=== PATIENT | female | born 1995 | race African-American/Black ===

== ENCOUNTER → 2018-09-14 | Outpatient (CLI) | payer OTHER ==
[~2018-09-14] MED LIST: PYRI25TA2 PO; UNIS25TA5 PO
== END ==
LOC: M WUC 18:07
PROVIDERS: ATTEND Physician Assistant
DX: O26.811 Pregnancy related exhaustion and fatigue, first trimester (principal); R11.0 Nausea; Z3A.00 Weeks of gestation of pregnancy not specified

== ENCOUNTER 2018-09-18 21:11 | Emergency (ER) | payer OTHER ==
[~2018-09-18] VITALS: Ht 162.6 cm; Wt 52.6 kg
[2018-09-18 21:11] VITALS: BP 126/73
[2018-09-18 22:06] LABS: BASO # 0.1 10^3/uL (0.0-0.2); BASO % 0.5 % (0.0-1.0); EOS # 0.3 10^3/uL (0.0-0.50); EOS % 2.6 % (0.0-3.0); HEMATOCRIT 37.3 % (36.0-47.0); HEMOGLOBIN 12.8 g/dl (12.0-15.5); LYMPH # 2.3 10^3/uL (1.5-6.5); LYMPH % 22.5 % (24.0-44.0); MEAN CORPUSCULAR HEMOGLOBIN 31.4 pg (27.0-33.0); MEAN CORPUSCULAR HGB CONC 34.3 g/dl (32.0-36.5); MEAN CORPUSCULAR VOLUME 91.4 fl (80.0-96.0); MONO # 0.7 10^3/uL (0.0-0.8); MONO % 6.8 % (0.0-5.0); NEUTROPHILS # 6.9 10^3/uL (1.8-7.7); NEUTROPHILS % 67.4 % (36.0-66.0); PLATELET COUNT, AUTOMATED 184 10^3/uL (150-450); RED BLOOD COUNT 4.08 10^6/uL (4.00-5.40); WHITE BLOOD COUNT 10.2 10^3/uL (4.0-10.0)
[2018-09-18 22:29] LABS: ALBUMIN 4.1 GM/DL (3.2-5.2); ALT/SGPT 14 U/L (12-78); BILIRUBIN,DIRECT 0.2 MG/DL (0.0-0.2); BILIRUBIN,TOTAL 0.5 MG/DL (0.2-1.0); BLOOD UREA NITROGEN 3 MG/DL (7-18); CALCIUM LEVEL 9.3 MG/DL (8.5-10.1); CARBON DIOXIDE LEVEL 26 MEQ/L (21-32); CHLORIDE LEVEL 104 MEQ/L (98-107); CREATININE FOR GFR 0.55 MG/DL (0.55-1.30); GLOMERULAR FILTRATION RATE > 60.0 (>60); GLUCOSE, FASTING 91 MG/DL (70-100); LIPASE 79 U/L (73-393); POTASSIUM SERUM 4.2 MEQ/L (3.5-5.1); SODIUM LEVEL 136 MEQ/L (136-145); TOTAL PROTEIN 7.3 GM/DL (6.4-8.2)
[2018-09-18] MEDS ORDERED: ONDANSETRON 4 MG ORAL DISINTEGRATING TAB (Q0162 PER 1MG) PO ONE (23:00)
[2018-09-18] MEDS ORDERED: PYRI25TA2 PO (23:46)
[2018-09-18] MEDS ORDERED: UNIS25TA5 PO (23:46)
== END 2018-09-18 23:54 | disposition home or self-care (01) ==
LOC: M ED 21:11
DX: O26.891 Other specified pregnancy related conditions, first trimester (principal); O21.9 Vomiting of pregnancy, unspecified; Z3A.00 Weeks of gestation of pregnancy not specified
CPT/HCPCS: 80048; 80076; 81001; 83690; 84702; 85025; 87086; 99284; Q0162

== ENCOUNTER → 2018-12-20 | Outpatient (CLI) | payer OTHER ==
[2018-12-20 08:11] LABS: BASO # 0.1 10^3/uL (0.0-0.2); BASO % 0.5 % (0.0-1.0); EOS # 0.2 10^3/uL (0.0-0.5); EOS % 1.8 % (0.0-3.0); HEMATOCRIT 32.3 % (36.0-47.0); HEMOGLOBIN 10.8 g/dl (12.0-15.5); LYMPH # 2.2 10^3/uL (1.5-5.0); LYMPH % 18.1 % (24.0-44.0); MEAN CORPUSCULAR HGB CONC 33.4 g/dl (32.0-36.5); MEAN CORPUSCULAR VOLUME 95.8 fl (80.0-96.0); MONO # 0.8 10^3/uL (0.0-0.8); MONO % 6.8 % (0.0-5.0); NEUTROPHILS # 8.9 10^3/uL (1.5-8.5); NEUTROPHILS % 71.9 % (36.0-66.0); PLATELET COUNT, AUTOMATED 158 10^3/uL (150-450); RED BLOOD COUNT 3.37 10^6/uL (4.00-5.40); WHITE BLOOD COUNT 12.4 10^3/uL (4.0-10.0)
--- NOTE | 2018-12-20 09:00 | REP ---
Clinical: Anatomical evaluation. Comparison: None . Findings: Examination demonstrates a single live intrauterine in cephalic presentation. motion is identified by technologist. Placenta is noted posterior and grade zero without evidence for placenta previa or abruption. Amniotic fluid volume is normal. Cervix measures 3.4 cm in length and appears closed. No evidence for nuchal cord. Gestational age by LMP 20 weeks 1 day with TRI 05/08/2019 . Gestational age by current measurements 20 weeks 3 days with TRI 05/06/2019 . FHR equals 147 beats per minute. BPD 4.9 cm 20 weeks 5 days HC 17.9 cm 20 weeks 2 days AC 14.1 cm 19 weeks 4 days FL 3.4 cm 20 weeks 6 days HL 3.3 cm 21 weeks 0 days HC/AC ratio 1.27 Estimated weight 335 grams ( 49th percentile). Anatomical assessment demonstrates normal structures including cranium, choroid plexus, cavum, lungs, four-chamber heart/ventricular outflow tracts, diaphragm, stomach, cord insertion/three-vessel cord, kidneys/bladder, and extremities. Limited evaluation of the posterior fossa, facial features, and spine. Impression: Single live intrauterine in cephalic presentation demonstrating appropriate interval growth. Anatomical limitations as noted above may warrant followup. Electronically Signed by Art Woody MD 12/20/2018 08:52 A
[2018-12-20 11:26] LABS: CHLAMYDIA DNA AMPLIFICATION NEGATIVE (NEGATIVE); GC DNA AMPLIFICATION NEGATIVE (NEGATIVE)
[2018-12-21 10:26] LABS: HIV 1&2 SCREEN CENTAUR NEGATIVE (NEGATIVE); RUBELLA IgG QUALITATIVE IMMUNE (IMMUNE)
== END ==
LOC: M RAD 06:34
PROVIDERS: ATTEND Obstetrics & Gynecology
DX: Z34.82 Encounter for supervision of other normal pregnancy, second trimester (principal); Z36.89 Encounter for other specified antenatal screening; Z3A.20 20 weeks gestation of pregnancy

== ENCOUNTER 2019-09-28 20:34 | Emergency (ER) | payer OTHER ==
--- NOTE | 2019-11-07 14:46 | ECGEPIP ---
[facility] - ED Test Date: 2019-09-28 Pat Name: TEOFILO OLSON Department: Room: - Gender: Female Digital Advertising Analyst: : 1995 Requested By: EMERGENCY ROOM Order Number: [id number] Reading MD: Eladia Estes Measurements Intervals [place] Rate: 74 P: 66 MA: 156 QRS: 72 QRSD: 85 T: 53 QT: 359 QTc: 398 Interpretive Statements SINUS RHYTHM NORMAL ECG SEE SCANNED DOWNTIME RECORD
[2019-11-12 04:49] LABS: APPEARANCE, URINE CLEAR (CLEAR); BACTERIA, URINE AUTO NEGATIVE (NEGATIVE); BILIRUBIN, URINE AUTO NEGATIVE (NEGATIVE); BLOOD, URINE BLOOD 1+ (NEGATIVE); COLOR, URINE YELLOW (YELLOW); GLUCOSE, URINE (UA) AUTO NEGATIVE (NEGATIVE); KETONE, URINE AUTO NEGATIVE (NEGATIVE); LEUKOCYTE ESTERASE, URINE AUTO NEGATIVE (NEGATIVE); MUCUS, URINE SMALL (NEGATIVE); NITRITE, URINE AUTO NEGATIVE (NEGATIVE); PROTEIN, URINE AUTO NEGATIVE (NEGATIVE); RBC, URINE AUTO 2 /HPF (0-3); SPECIFIC GRAVITY URINE AUTO 1.015 (1.002-1.035); SQUAMOUS EPITHELIAL CELL UR AU 1 /HPF (0-6); UROBILINOGEN, URINE AUTO 0.2 mg/dL (0.0-2.0); WBC, URINE AUTO 1 /HPF (0-3)
[2019-11-12 05:06] LABS: BASO % 0.4 % (0.0-1.0); EOS # 0.1 10^3/uL (0.0-0.5); EOS % 0.8 % (0.0-3.0); HEMATOCRIT 44.3 % (36.0-47.0); HEMOGLOBIN 14.5 g/dl (12.0-15.5); LYMPH # 3.1 10^3/uL (1.5-5.0); LYMPH % 36.7 % (24.0-44.0); MEAN CORPUSCULAR HEMOGLOBIN 30.5 pg (27.0-33.0); MEAN CORPUSCULAR HGB CONC 32.7 g/dl (32.0-36.5); MEAN CORPUSCULAR VOLUME 93.3 fl (80.0-96.0); MONO # 0.4 10^3/uL (0.0-0.8); MONO % 5.3 % (0.0-5.0); NEUTROPHILS # 4.7 10^3/uL (1.5-8.5); NEUTROPHILS % 56.6 % (36.0-66.0); PLATELET COUNT, AUTOMATED 180 10^3/uL (150-450); RED BLOOD COUNT 4.75 10^6/uL (4.00-5.40); WHITE BLOOD COUNT 8.3 10^3/uL (4.0-10.0)
[2019-12-18 17:32] LABS: ALBUMIN 4.3 GM/DL (3.2-5.2); ALT/SGPT 41 U/L (12-78); BILIRUBIN,DIRECT 0.2 MG/DL (0.0-0.2); BILIRUBIN,TOTAL 0.6 MG/DL (0.2-1.0); BLOOD UREA NITROGEN 12 MG/DL (7-18); CALCIUM LEVEL 9.6 MG/DL (8.5-10.1); CARBON DIOXIDE LEVEL 27 MEQ/L (21-32); CHLORIDE LEVEL 108 MEQ/L (98-107); CK-MB VALUE MASS < 1.0 NG/ML (<3.6); CPK CREATINE PHOSPHOKINASE 122 U/L (26-192); CREATININE FOR GFR 0.74 MG/DL (0.55-1.30); GLOMERULAR FILTRATION RATE > 60.0 (>60); GLUCOSE, FASTING 78 MG/DL (70-100); LIPASE 108 U/L (73-393); MB/CK RELATIVE INDEX 0.82 (< OR =4); POTASSIUM SERUM 4.2 MEQ/L (3.5-5.1); SODIUM LEVEL 140 MEQ/L (136-145); TOTAL PROTEIN 7.9 GM/DL (6.4-8.2); TROPONIN I < 0.02 NG/ML (< 0.10)
[2019-12-18 17:37] LABS: HCG, SERUM QUALITATIVE NEGATIVE (NEGATIVE)
== END 2019-09-29 00:03 | disposition home or self-care (01) ==
LOC: M ED 20:34
DX: R10.13 Epigastric pain (principal); I10 Essential (primary) hypertension

== ENCOUNTER → 2019-10-09 | Outpatient (REF) | payer OTHER ==
[2019-11-24 13:04] LABS: FREE T4 1.11 NG/DL (0.76-1.46); THYROID STIMULATING HORMONE 1.47 uIU/ML (0.358-3.740)
== END ==
LOC: M SFHCPLAZ 14:18
PROVIDERS: ATTEND Physician Assistant
DX: R07.9 Chest pain, unspecified (principal); R00.2 Palpitations
CPT/HCPCS: 36415; 84439; 84443; G0463

== ENCOUNTER → 2019-12-22 | Outpatient (REF) | payer OTHER ==
[2019-12-22 17:42] LABS: BASO % 0.8 % (0.0-1.0); EOS # 0.1 10^3/uL (0.0-0.5); EOS % 1.4 % (0.0-3.0); HEMATOCRIT 43.1 % (36.0-47.0); HEMOGLOBIN 13.9 g/dl (12.0-15.5); LYMPH # 1.8 10^3/uL (1.5-5.0); LYMPH % 36.3 % (24.0-44.0); MEAN CORPUSCULAR HGB CONC 32.3 g/dl (32.0-36.5); MONO # 0.4 10^3/uL (0.0-0.8); MONO % 8.5 % (0.0-5.0); NEUTROPHILS # 2.7 10^3/uL (1.5-8.5); NEUTROPHILS % 52.8 % (36.0-66.0); PLATELET COUNT, AUTOMATED 160 10^3/uL (150-450); RED BLOOD COUNT 4.49 10^6/uL (4.00-5.40)
== END ==
LOC: M SFHCPLAZ 13:38
PROVIDERS: ATTEND Nurse Practitioner Family
DX: N92.0 Excessive and frequent menstruation with regular cycle (principal)
CPT/HCPCS: 36415; 85025; G0463

== ENCOUNTER → 2020-03-15 | Outpatient (REF) | payer OTHER ==
[2020-03-15 12:53] LABS: BASO % 0.7 % (0.0-1.0); EOS # 0.1 10^3/uL (0.0-0.5); HEMATOCRIT 39.9 % (36.0-47.0); HEMOGLOBIN 13.2 g/dl (12.0-15.5); LYMPH # 2.2 10^3/uL (1.5-5.0); MEAN CORPUSCULAR HEMOGLOBIN 31.1 pg (27.0-33.0); MEAN CORPUSCULAR HGB CONC 33.1 g/dl (32.0-36.5); MEAN CORPUSCULAR VOLUME 93.9 fl (80.0-96.0); MONO # 0.4 10^3/uL (0.0-0.8); MONO % 6.9 % (0.0-5.0); NEUTROPHILS # 3.2 10^3/uL (1.5-8.5); NEUTROPHILS % 54.2 % (36.0-66.0); PLATELET COUNT, AUTOMATED 172 10^3/uL (150-450); RED BLOOD COUNT 4.25 10^6/uL (4.00-5.40); WHITE BLOOD COUNT 5.8 10^3/uL (4.0-10.0)
[2020-03-15 13:31] LABS: ALBUMIN 4.2 GM/DL (3.2-5.2); ALT/SGPT 38 U/L (12-78); BILIRUBIN,TOTAL 0.8 MG/DL (0.2-1.0); BLOOD UREA NITROGEN 10 MG/DL (7-18); CALCIUM LEVEL 9.8 MG/DL (8.5-10.1); CARBON DIOXIDE LEVEL 25 MEQ/L (21-32); CHLORIDE LEVEL 105 MEQ/L (98-107); CREATININE FOR GFR 0.65 MG/DL (0.55-1.30); FREE T4 0.98 NG/DL (0.76-1.46); GLOMERULAR FILTRATION RATE > 60.0 (>60); GLUCOSE, FASTING 76 MG/DL (70-100); POTASSIUM SERUM 4.8 MEQ/L (3.5-5.1); SODIUM LEVEL 138 MEQ/L (136-145); TOTAL PROTEIN 7.2 GM/DL (6.4-8.2)
== END ==
LOC: M SFHCPLAZ 11:01
PROVIDERS: ATTEND Nurse Practitioner Family
DX: R53.83 Other fatigue (principal); R63.4 Abnormal weight loss; E55.9 Vitamin D deficiency, unspecified

== ENCOUNTER 2020-05-06 21:46 | Emergency (ER) | payer OTHER ==
[~2020-05-06] VITALS: Ht 160 cm; Wt 52.1 kg
[2020-05-06] MEDS ORDERED: OMEP40CA97 PO (21:51)
[2020-05-06] MEDS ORDERED: DERM1TAB2 PO (21:52)
--- NOTE | 2020-05-06 22:25 | ECGEPIP ---
[facility] - ED Test Date: 2020-05-06 Pat Name: TEOFILO OLSON Department: Room: - Gender: Female Social Media Executive: [place] : 1995 Requested By: GAUTAM ROCK Order Number: [id number] Reading MD: Familia Triana Measurements Intervals [place] Rate: 86 P: 65 NE: 150 QRS: 78 QRSD: 82 T: 33 QT: 342 QTc: 409 Interpretive Statements Normal sinus rhythm Similar to tracing done 09-28-19 Electronically Signed on 05-06-2020 22:25:40 EDT by Familia Triana
[2020-05-06 23:28] LABS: URINE PREG TEST POSITIVE (NEGATIVE)
[2020-05-07] MEDS ORDERED: FAMOTIDINE 20 MG TAB PO ONE (00:20)
[2020-05-07] MEDS ORDERED: ACETAMINOPHEN TAB 650MG DOSE (2X325MG) PO ONE (00:20)
--- NOTE | 2020-05-07 02:18 | REPVR ---
PROCEDURE INFORMATION: Exam: XR Chest Exam date and time: 05/07/2020 1:49 AM Age: 24 years old Clinical indication: Chest pain; Type not specified; Additional info: Chest pain - please doubly shield PT is TECHNIQUE: Imaging protocol: XR of the chest Views: 1 view. COMPARISON: CR Chest, 2 view PA, Lat 09/28/2019 11:22 PM FINDINGS: Lungs: Unremarkable. No consolidation. Pleural spaces: Unremarkable. No pleural effusion. No pneumothorax. Heart/Mediastinum: Unremarkable. No cardiomegaly. Bones/joints: Unremarkable. IMPRESSION: Negative chest without significant change from 09/28/2019. Electronically signed by: José Miguel Ramirez On 05/07/2020 02:17:54 AM
[2020-05-07] MEDS ORDERED: PRENTAB9 PO (02:38)
[2020-05-07] MEDS ORDERED: PEPC1TAB5 PO (02:38)
[2020-05-07 03:00] VITALS: BP 115/69
== END 2020-05-07 03:26 | disposition home or self-care (01) ==
LOC: M ED 21:46
DX: K21.9 Gastro-esophageal reflux disease without esophagitis (principal)

== ENCOUNTER → 2020-05-22 | Outpatient (REF) | payer OTHER ==
[~2020-05-22] MED LIST changes: +DERM1TAB2 PO; +OMEP40CA97 PO; +PEPC1TAB5 PO; +PRENTAB9 PO
[2020-05-22 15:30] LABS: BASO # 0.1 10^3/uL (0.0-0.2); BASO % 0.5 % (0.0-1.0); EOS # 0.1 10^3/uL (0.0-0.5); EOS % 0.6 % (0.0-3.0); HEMATOCRIT 36.8 % (36.0-47.0); HEMOGLOBIN 12.6 g/dl (12.0-15.5); LYMPH # 2.2 10^3/uL (1.5-5.0); LYMPH % 22.7 % (24.0-44.0); MEAN CORPUSCULAR HEMOGLOBIN 33.8 pg (27.0-33.0); MEAN CORPUSCULAR HGB CONC 34.2 g/dl (32.0-36.5); MEAN CORPUSCULAR VOLUME 98.7 fl (80.0-96.0); MONO # 0.8 10^3/uL (0.0-0.8); NEUTROPHILS # 6.7 10^3/uL (1.5-8.5); NEUTROPHILS % 67.9 % (36.0-66.0); PLATELET COUNT, AUTOMATED 173 10^3/uL (150-450); RED BLOOD COUNT 3.73 10^6/uL (4.00-5.40); WHITE BLOOD COUNT 9.8 10^3/uL (4.0-10.0)
[2020-05-22 16:15] LABS: ALT/SGPT 36 U/L (12-78); BILIRUBIN,TOTAL 0.5 MG/DL (0.2-1.0); BLOOD UREA NITROGEN 8 MG/DL (7-18); CALCIUM LEVEL 9.4 MG/DL (8.5-10.1); CARBON DIOXIDE LEVEL 24 MEQ/L (21-32); CHLORIDE LEVEL 109 MEQ/L (98-107); CREATININE FOR GFR 0.46 MG/DL (0.55-1.30); FREE T4 1.06 NG/DL (0.76-1.46); GLOMERULAR FILTRATION RATE > 60.0 (>60); GLUCOSE, FASTING 77 MG/DL (70-100); HCG, SERUM QUANTITATIVE 109827 MIU/ML; POTASSIUM SERUM 4.7 MEQ/L (3.5-5.1); SODIUM LEVEL 139 MEQ/L (136-145); THYROID STIMULATING HORMONE 0.579 uIU/ML (0.358-3.740); TOTAL PROTEIN 7.1 GM/DL (6.4-8.2)
== END ==
LOC: M SFHCPLAZ 13:38
PROVIDERS: ATTEND Nurse Practitioner Family
DX: Z34.91 Encounter for supervision of normal pregnancy, unspecified, first trimester (principal); R07.89 Other chest pain

== ENCOUNTER → 2020-07-08 | Outpatient (REF) | payer OTHER ==
[2020-07-08 15:39] LABS: HEMATOCRIT 37.1 % (36.0-47.0); HEMOGLOBIN 12.2 g/dl (12.0-15.5); MEAN CORPUSCULAR HEMOGLOBIN 30.7 pg (27.0-33.0); MEAN CORPUSCULAR HGB CONC 32.9 g/dl (32.0-36.5); MEAN CORPUSCULAR VOLUME 93.5 fl (80.0-96.0); PLATELET COUNT, AUTOMATED 146 10^3/uL (150-450); RED BLOOD COUNT 3.97 10^6/uL (4.00-5.40); WHITE BLOOD COUNT 11.6 10^3/uL (4.0-10.0)
[2020-07-08 15:59] LABS: CREATININE,RANDOM URINE 85.9 MG/DL; TOTAL PROTEIN,RANDOM URINE 17.7 MG/DL (0.0-12.0)
[2020-07-08 16:00] LABS: ALT/SGPT 26 U/L (12-78); BILIRUBIN,TOTAL 0.4 MG/DL (0.2-1.0); CREATININE FOR GFR 0.52 MG/DL (0.55-1.30); GLOMERULAR FILTRATION RATE > 60.0 (>60); LDH LACTATE DEHYDROGENASE 137 U/L (84-246); URIC ACID 2.8 MG/DL (2.6-6.0)
[2020-07-08 16:50] LABS: HIV 1&2 SCREEN CENTAUR NEGATIVE (NEGATIVE)
[2020-07-08 17:16] LABS: CHLAMYDIA DNA AMPLIFICATION NEGATIVE (NEGATIVE); GC DNA AMPLIFICATION NEGATIVE (NEGATIVE)
== END ==
LOC: M PLALAB 13:58
PROVIDERS: ATTEND Advanced Practice Midwife
DX: Z34.92 Encounter for supervision of normal pregnancy, unspecified, second trimester (principal); Z3A.00 Weeks of gestation of pregnancy not specified

== ENCOUNTER → 2020-07-18 | Outpatient (CLI) | payer OTHER ==
--- NOTE | 2020-07-18 15:22 | REP ---
INDICATION: GESTATIONAL AGE, SIZE LESS THEN DATES COMPARISON: None. TECHNIQUE: Transabdominal obstetrical ultrasound with color Doppler evaluation. FINDINGS: Examination demonstrates a single live intrauterine in cephalic presentation. motion is identified by technologist. Placenta is noted anterior and grade 0 without evidence for placenta previa or abruption. Amniotic fluid volume is normal. Cervix measures 3.4 Cm in length and appears closed.. Gestational age by LMP 15 weeks 3 days with TRI 01/06/2021. Gestational age by current measurements 15 weeks 6 days with TRI 01/03/2021. FHR equals 146 beats per minute. Estimated weight 144 grams (85thpercentile). Limited anatomical assessment demonstrates normal structures including cerebral ventricles, choroid plexus, diaphragm, stomach, bilateral kidneys/bladder, spine, extremities and three-vessel cord. IMPRESSION: 1. Single live intrauterine in cephalic presentation demonstrating appropriate estimated weight. 2. Incomplete anatomical assessment warrants re-evaluation. <Electronically signed by Art Woody > 07/18/20 [id number]
== END ==
LOC: M RAD 14:11
PROVIDERS: ATTEND Advanced Practice Midwife
DX: O26.842 Uterine size-date discrepancy, second trimester (principal); Z3A.15 15 weeks gestation of pregnancy

== ENCOUNTER 2020-08-17 00:29 | Emergency (ER) | payer OTHER ==
[~2020-08-17] VITALS: Ht 157.5 cm; Wt 54.5 kg
[~2020-08-17 00:29] MED LIST changes: +OMEP-218 PO; +OMEP40CA4 PO; -OMEP40CA97 PO
[2020-08-17 02:51] VITALS: BP 112/69
== END 2020-08-17 04:52 | disposition left against medical advice (07) ==
LOC: M ED 00:29
DX: Z53.21 Procedure and treatment not carried out due to patient leaving prior to being seen by health care provider (principal)

== ENCOUNTER → 2020-08-28 | Outpatient (CLI) | payer OTHER ==
--- NOTE | 2020-08-28 09:00 | REP ---
INDICATION: ANATOMY COMPARISON: 07/18/2020 TECHNIQUE: Transabdominal obstetrical ultrasound with color Doppler evaluation. FINDINGS: Examination demonstrates a single live intrauterine in variable presentation. motion is identified by technologist. Placenta is noted anterior and grade 0 without evidence for placenta previa or abruption. Amniotic fluid volume is normal. Cervix measures 3.0 cm in length and appears closed.. Selected gestational age: 21 weeks 2 days with TRI 01/06/2021. Gestational age by current measurements 21 weeks 3 days with TRI 01/05/2021. FHR equals 149 beats per minute. Estimated weight 408 grams (40thpercentile). Anatomical assessment demonstrates normal structures including cranium, choroid plexus, cavum, cerebellum/posterior fossa, facial features, lungs, four-chamber heart/ventricular outflow tracts, diaphragm, stomach, cord insertion/three-vessel cord, kidneys/bladder, spine, and extremities. IMPRESSION: Single live intrauterine in cephalic presentation demonstrating appropriate interval growth. Anatomical assessment is complete and normal. No gross abnormalities are identified. <Electronically signed by Art Woody > 08/28/20 [id number]
== END ==
LOC: M WHC 07:32
PROVIDERS: ATTEND Advanced Practice Midwife
DX: Z34.92 Encounter for supervision of normal pregnancy, unspecified, second trimester (principal); Z36.89 Encounter for other specified antenatal screening; Z3A.21 21 weeks gestation of pregnancy

== ENCOUNTER → 2020-09-27 | Outpatient (CLI) | payer OTHER | LOC: M PLALAB 15:28 | PROVIDERS: ATTEND Advanced Practice Midwife | DX: Z34.82 Encounter for supervision of other normal pregnancy, second trimester (principal); Z36.89 Encounter for other specified antenatal screening ==

== ENCOUNTER → 2020-10-04 | Outpatient (CLI) | payer OTHER ==
[2020-10-04 13:28] LABS: HEMATOCRIT 35.2 % (36.0-47.0); HEMOGLOBIN 11.5 g/dl (12.0-15.5); MEAN CORPUSCULAR HEMOGLOBIN 31.5 pg (27.0-33.0); MEAN CORPUSCULAR HGB CONC 32.7 g/dl (32.0-36.5); MEAN CORPUSCULAR VOLUME 96.4 fl (80.0-96.0); PLATELET COUNT, AUTOMATED 121 10^3/uL (150-450); RED BLOOD COUNT 3.65 10^6/uL (4.00-5.40); WHITE BLOOD COUNT 12.8 10^3/uL (4.0-10.0)
== END ==
LOC: M PLALAB 09:56
PROVIDERS: ATTEND Advanced Practice Midwife
DX: Z34.92 Encounter for supervision of normal pregnancy, unspecified, second trimester (principal)

== ENCOUNTER → 2020-12-10 | Outpatient (REF) | payer OTHER ==
[~2020-12-10] MED LIST changes: +ACET-683 PO; +COLA100C5 PO; +IBUP-1022 PO
== END ==
LOC: M SFHCWAGY 16:54
PROVIDERS: ATTEND Obstetrics & Gynecology
DX: Z34.93 Encounter for supervision of normal pregnancy, unspecified, third trimester (principal); Z3A.00 Weeks of gestation of pregnancy not specified
CPT/HCPCS: 87081; G0463

== ENCOUNTER → 2020-12-17 | Outpatient (CLI) | payer OTHER ==
[~2020-12-17] MED LIST changes: -ACET-683 PO; -COLA100C5 PO; -IBUP-1022 PO
[2020-12-17 15:57] LABS: HEMATOCRIT 35.5 % (36.0-47.0); HEMOGLOBIN 11.2 g/dl (12.0-15.5); MEAN CORPUSCULAR HEMOGLOBIN 29.1 pg (27.0-33.0); MEAN CORPUSCULAR HGB CONC 31.5 g/dl (32.0-36.5); MEAN CORPUSCULAR VOLUME 92.2 fl (80.0-96.0); PLATELET COUNT, AUTOMATED 122 10^3/uL (150-450); RED BLOOD COUNT 3.85 10^6/uL (4.00-5.40); WHITE BLOOD COUNT 11.8 10^3/uL (4.0-10.0)
== END ==
LOC: M PLALAB 13:50
PROVIDERS: ATTEND Obstetrics & Gynecology
DX: O99.119 Other diseases of the blood and blood-forming organs and certain disorders involving the immune mechanism complicating pregnancy, unspecified trimester (principal)

== ENCOUNTER 2021-01-12 16:19 | Inpatient (IN) | payer OTHER ==
[~2021-01-12] VITALS: Ht 157.5 cm; Wt 69.0 kg
--- OUTSIDE RECORDS SUMMARY | 2021-01-12 16:22 | CCD ---
Author Author [facility] Organization [facility] Address Unknown Phone Unavailable Care Team Providers Care Glost Kiln Operator Name Role Phone Anayeli Tsang Unavailable PROBLEMS Type Condition ICD9-CM Code [id number] Code Onset Dates Condition S tatus W/U Status Risk SNOMED Code Notes Problem Vitamin D deficiency E55.9 Active confirmed 53262540 Problem Supervision of other normal Z34.80 Ac tive confirm 022391275 Problem Menorrhagia with regular cycle N92.0 Active confir med [id number] ALLERGIES No Known Allergies ENCOUNTERS from 1995 to 2021-01-10 Encounter Location Date Provider Diagnosis [facility] [address] [place] [address] [place] [address] Dec, Anayeli Tsang 40 weeks gestatio n of Z3A.40 and Encounter for supervision of normal in multigravida in third trimester Z34.83 IMMUNIZATIONS Vaccine Route Administration Date Status TDAP 0.5mL Boostrix IM Intramuscular Nov 26, 2020 Administere d SOCIAL HISTORY Tobacco Use: Social History Observation Description Date Details (start date - stop date) Never Smoker Sex Assigned At : Social History Observation Description Sex Assigned At Unknown Education: Question Answer Notes Level of Education: Finished High School Language: Question Answer Notes Languages spoken: Citizen Of [place] Worship: Question Answer Notes Worship 21 Restoration Tobacco Use: Question Answer Notes Are you a: never smoker REASON FOR REFERRAL No Information VITAL SIGNS Weight 154 lbs Dec, Weight-kg 69.85 kg 18 Nov, 2021 Height 62 in Dec, BMI 28.167 kg/m2 Dec, Blood pressure systolic 128 mm Hg Dec, Blood pressure diastolic 72 mm Hg Dec, MEDICATIONS Medication SIG (Take, Route, Frequency, Duration) Notes Start Da te End Date Status Famotidine 20 MG TAKE 1 TABLET BY MOUTH TWICE DAILY Oral for 5 Not-Taking Omeprazole 20 MG TAKE 1 CAPSULE BY MOUTH ONCE DAILY Oral for 20 Not-Taking PrePLUS 27-1 MG TAKE 1 TABLET BY MOUTH ONCE DAILY Oral for 30 Not-Taking 27-1 MG 1 tablet Orally Once a day Active Vitamin D3 1.25 MG (17846 UT) TAKE 1 CAPSULE BY MOUTH ONCE A WEE K Oral for 28 Not-Taking PROCEDURES No Information RESULTS No Results REASON FOR VISIT 1 WK PN MEDICAL (GENERAL) HISTORY Type Description Date Medical History GERD Medical History Gestational HTN Surgical History D&C Hospitalization History childbirth Goals Section No Information Health Concerns No Information MEDICAL EQUIPMENT No Information MENTAL STATUS No Information FUNCTIONAL STATUS No Information ASSESSMENTS Encounter Date Diagnosis Assessment Notes Treatment Notes Treatm ent Clinical Notes Dec, 40 weeks gestation of (ICD-10 - Z3A.40 ) Dec, Encounter for supervision of normal in multigravida in third trimester (ICD-10 - Z34.83) PLAN OF TREATMENT Next Appt Details prn Reason:labor Follow Up:prnlabor Insurance Providers Payer Name Payer Address Payer Phone Insured Name Patient Relati onship to Insured Coverage Start Date Coverage End Date [facility] [address] [facility] [id number] Bacilio Richey
--- OUTSIDE RECORDS SUMMARY | 2021-01-12 16:22 | CCD ---
Author Author [facility] Organization [facility] Address Unknown Phone Unavailable Care Team Providers Care Computer Systems Information Director Name Role Phone Willielaura Anayeli Unavailable PROBLEMS Type Condition ICD9-CM Code NEW25-MI Code Onset Dates Condition S tatus W/U Status Risk SNOMED Code Notes Problem Vitamin D deficiency E55.9 Active confirmed 39713621 Problem Supervision of other normal Z34.80 Ac tive confirm 462185252 Problem Menorrhagia with regular cycle N92.0 Active confir med 819671036 ALLERGIES No Known Allergies ENCOUNTERS from 1995 to 2021-01-10 Encounter Location Date Provider Diagnosis [facility] [address] [place] [address] [place] [address] Dec, Anayeli Tsang IMMUNIZATIONS Vaccine Route Administration Date Status TDAP 0.5mL Boostrix IM Intramuscular Nov 26, 2020 Administere d SOCIAL HISTORY Tobacco Use: Social History Observation Description Date Details (start date - stop date) Never Smoker Sex Assigned At : Social History Observation Description Sex Assigned At Unknown Education: Question Answer Notes Level of Education: Finished High School Language: Question Answer Notes Languages spoken: Tajik Scientologist: Question Answer Notes Scientologist 21 Mandaen Tobacco Use: Question Answer Notes Are you a: never smoker REASON FOR REFERRAL No Information VITAL SIGNS No information MEDICATIONS Medication SIG (Take, Route, Frequency, Duration) [...] a day Active Vitamin D3 1.25 MG (87712 UT) TAKE 1 CAPSULE BY MOUTH ONCE A WEE K Oral for 28 Not-Taking PROCEDURES No Information RESULTS No Results REASON FOR VISIT NEEDS 1 WK PN MEDICAL (GENERAL) HISTORY Type Description Date Medical History GERD Medical History Gestational HTN Surgical History D&C Hospitalization History childbirth Goals Section No Information Health Concerns No Information MEDICAL EQUIPMENT No Information MENTAL STATUS No Information FUNCTIONAL STATUS No Information ASSESSMENTS No Information PLAN OF TREATMENT No Information Insurance Providers Payer Name Payer Address Payer Phone Insured Name Patient Relati onship to Insured Coverage Start Date Coverage End Date [facility] [id number] [place] [id number] Bacilio Richey
--- OUTSIDE RECORDS SUMMARY | 2021-01-12 16:22 | CCD ---
Author Author [facility] Organization [facility] Address Unknown Phone Unavailable Care Team Providers Care Music Arranger Name Role Phone Kayley Carvalho Unavailable PROBLEMS Type Condition ICD9-CM Code [id number] Code Onset Dates Condition S tatus W/U Status Risk SNOMED Code Notes Problem Vitamin D deficiency E55.9 Active confirmed 78385296 Problem Supervision of other normal Z34.80 Ac tive confirm 007436352 Problem Menorrhagia with regular cycle N92.0 Active confir med 877444447 ALLERGIES No Known Allergies ENCOUNTERS from 1995 to 2020-11-29 Encounter Location Date Provider Diagnosis [facility] [address] [place] [address] [place] [address] Nov, Kayley Carvalho Other diseases of th e blood and blood- forming organs and certain disorders involving the immune mechanism complicating , unspecified trimester O99.119 ; Thrombocytopenia, unspecified D69.6 ; 34 weeks gestation of Z3A.34 and Encounter for immunization Z23 IMMUNIZATIONS Vaccine Route Administration Date Status TDAP 0.5mL Boostrix IM Intramuscular Nov 26, 2020 Administere d SOCIAL HISTORY Tobacco Use: Social History Observation Description Date Details (start date - stop date) Never Smoker Sex Assigned At : Social History Observation Description Sex Assigned At Unknown Education: Question Answer Notes Level of Education: Finished High School Language: Question Answer Notes Languages spoken: Ugandan Yazdanism: Question Answer Notes Yazdanism 21 Jew Tobacco Use: Question Answer Notes Are you a: never smoker REASON FOR REFERRAL No Information VITAL SIGNS No information MEDICATIONS Medication SIG (Take, Route, Frequency, Duration) Notes Start Da te End Date Status Famotidine 20 MG TAKE 1 TABLET BY MOUTH TWICE DAILY Oral for 5 Not-Taking 27-1 MG 1 tablet Orally Once a day Active Omeprazole 20 MG TAKE 1 CAPSULE BY MOUTH ONCE DAILY Oral for 20 Not-Taking PrePLUS 27-1 MG TAKE 1 TABLET BY MOUTH ONCE DAILY Oral for 30 Not-Taking Vitamin D3 1.25 MG (05961 UT) TAKE 1 CAPSULE BY MOUTH ONCE A WEE K Oral for 28 Not-Taking PROCEDURES No Information RESULTS No Results REASON FOR VISIT 2wk pn MEDICAL (GENERAL) HISTORY Type Description Date Medical History GERD Medical History Gestational HTN Surgical History D&C Hospitalization History childbirth Goals Section No Information Health Concerns No Information MEDICAL EQUIPMENT No Information MENTAL STATUS No Information FUNCTIONAL STATUS No Information ASSESSMENTS Encounter Date Diagnosis Assessment Notes Treatment Notes Treatm ent Clinical Notes Nov, Thrombocytopenia, unspecified (ICD-10 - D69.6) Nov, Other diseases of the blood and blood-forming organs and certain disorders involving the immune mechanism complicating , unspecified trimester (ICD-10 - O99.119) Nov, 34 weeks gestation of (ICD-10 - Z3A.34 ) Nov, Encounter for immunization (ICD-10 - Z23) PLAN OF TREATMENT Treatment Notes Test Name Order Date Imm: Boostrix 0.5mL IM TDAP 2020-11-26 Next Appt Details 1-2 Week Reason: Provider Name:Kayley Carvalho, 2020-11-22 9 02:00:00 PM, [address] [facility], , [place], [address], Follow Up:1-2 WeekPrenatal Insurance Providers Payer Name Payer Address Payer Phone Insured Name Patient Relati onship to Insured Coverage Start Date Coverage End Date [facility] INSURANCE [address] [place] [id number] Bacilio Richey
--- OUTSIDE RECORDS SUMMARY | 2021-01-12 16:22 | CCD ---
Author Author [facility] Organization [facility] Address Unknown Phone Unavailable Care Team Providers Care Tube Coater Name Role Phone Sam Carson Unavailable PROBLEMS Type Condition ICD9-CM Code [id number] Code Onset Dates Condition S tatus W/U Status Risk SNOMED Code Notes Problem Vitamin D deficiency E55.9 Active confirmed 63130225 Problem Supervision of other normal Z34.80 Ac tive confirm 723307848 Problem Menorrhagia with regular cycle N92.0 Active confir med 674312853 ALLERGIES No Known Allergies ENCOUNTERS from 1995 to 2020-11-21 Encounter Location Date Provider Diagnosis [facility] [address] [place] [address] [place] [address] Oct, Sam Carson Other diseases of th e blood and blood- forming organs and certain disorders involving the immune mechanism complicating , unspecified trimester O99.119 ; Thrombocytopenia, unspecified D69.6 a nd 32 weeks gestation of Z3A.32 IMMUNIZATIONS No Information SOCIAL HISTORY Tobacco Use: Social History Observation Description Date Details (start date - stop date) Never Smoker Sex Assigned At : Social History Observation Description Sex Assigned At Unknown Education: Question Answer Notes Level of Education: Finished High School Language: Question Answer Notes Languages spoken: Slovenian Worship: Question Answer Notes Worship 21 Baptism Tobacco Use: Question Answer Notes Are you a: never smoker REASON FOR REFERRAL No Information VITAL SIGNS Weight 143 lbs Oct, Weight-kg 64.86 kg Oct, Height 62 in Oct, BMI 26.155 kg/m2 Oct, Blood pressure systolic 108 mm Hg Oct, Blood pressure diastolic 64 mm Hg Oct, MEDICATIONS Medication SIG (Take, Route, Frequency, Duration) Notes Start Da te End Date Status 27-1 MG 1 tablet Orally Once a day Active Famotidine 20 MG TAKE 1 TABLET BY MOUTH TWICE DAILY Oral for 5 Not-Taking Vitamin D3 1.25 MG (88030 UT) TAKE 1 CAPSULE BY MOUTH ONCE A WEE K Oral for 28 Not-Taking Omeprazole 20 MG TAKE 1 CAPSULE BY MOUTH ONCE DAILY Oral for 20 Not-Taking PrePLUS 27-1 MG TAKE 1 TABLET BY MOUTH ONCE DAILY Oral for 30 Not-Taking PROCEDURES No Information RESULTS No Results REASON FOR VISIT 4 wk pn MEDICAL (GENERAL) HISTORY Type Description Date Medical History GERD Medical History Gestational HTN Surgical History D&C Hospitalization History childbirth Goals Section No Information Health Concerns No Information MEDICAL EQUIPMENT No Information MENTAL STATUS No Information FUNCTIONAL STATUS No Information ASSESSMENTS Encounter Date Diagnosis Assessment Notes Treatment Notes Treatm ent Clinical Notes Oct, Other diseases of the blood and blood-forming organs and certain disorders involving the immune mechanism complicating , unspecified trimester (ICD-10 - O99.119) Oct, Thrombocytopenia, unspecified (ICD-10 - D69.6) Oct, 32 weeks gestation of (ICD-10 - Z3A.32 ) PLAN OF TREATMENT Treatment Notes Test Name Order Date CBC - Complete Blood Count 2020-11-11 Next Appt Details 2 Weeks Reason: Provider Name:Kayley Luther Deven, 2020-10-0 5 01:00:00 PM, [address] [facility], , [place], [address], Follow Up:2 WeeksPrenatal Insurance Providers Payer Name Payer Address Payer Phone Insured Name Patient Relati onship to Insured Coverage Start Date Coverage End Date [facility] [address] [place] [id number] Bacilio Richey
--- OUTSIDE RECORDS SUMMARY | 2021-01-12 16:22 | CCD ---
Author Author [facility] Organization [facility] Address Unknown Phone Unavailable Support Name Relationship Address Phone ALPHA ONE Next Of Kin [address] [place] [address] [place] [address] BART ALW Next Of Kin [address] [place] [address] [place] [address] UE Next Of Kin Unknown Unavailable BART RICHEY Next Of Kin [address] [place] [address] [place] [address] Bart Richey ECON [address] [place] [address] [place] [address] Unavailable Re-disclosure Warning The records that you are about to access may contain information from federally-assisted alcohol or drug abuse programs. If such information is present, then the following federally mandated warning applies: This information has been disclosed to you from records protected by federal confidentiality rules (42 CFR part 2). The federal rules prohibit you from making any further disclosure of this information unless further disclosure is expressly permitted by the written consent of the person to whom it pertains or as otherwise permitted by 42 CFR part 2. A general authorization for the release of medical or other information is NOT sufficient for this purpose. The Federal rules restrict any use of the information to criminally investigate or prosecute any alcohol or drug abuse patient.The records that you are about to access may contain highly sensitive health information, the redisclosure of which is protected by Article 27-F of the [facility] Public Health law. If you continue you may have access to information: Regarding HIV / AIDS; Provided by facilities licensed or operated by the [facility] Office of Mental Health; or Provided by the [facility] Office for People With Developmental Disabilities. If such information is present, then the following [facility] mandated warning applies: This information has been disclosed to you from confidential records which are protected by state law. State law prohibits you from making any further disclosure of this information without the specific written consent of the person to whom it pertains, or as otherwise permitted by law. Any unauthorized further disclosure in violation of state law may result in a fine or custodial sentence or both. A general authorization for the release of medical or other information is NOT sufficient authorization for further disc losure. Family History Family Member Name Family Member Gender Family Member Status Date o f Status Description Data Source(s) Unknown Unknown Problem MEDENT ([facility]) Encounters Encounter Providers Location Date Indications Data Source(s ) ( ESTOB) [facility] Est OB [address] [place] [address] 01/09/2021 12:00:00 AM EST eCW1 ([facility]) Unknown [address] [facility] [address] 12/31/2020 12:00:00 AM EST eCW1 ([facility]) ( ESTOB) [facility] Est OB [address] [place] [address] 12/31/2020 12:00:00 AM EST eCW1 ([facility]) Unknown [address] [facility] [address] 12/24/2020 12:00:00 AM EDT eCW1 ([facility]) ( ESTOB) [facility] Est OB [address] [place] [address] 12/24/2020 12:00:00 AM EDT eCW1 ([facility]) ( ESTOB) [facility] Est OB [address] [place] [address] 12/16/2020 12:00:00 AM EDT eCW1 ([facility]) ( ESTOB) [facility] Est OB [address] [place] [address] 11/26/2020 12:00:00 AM EDT eCW1 ([facility]) ( ESTOB) [facility] Est OB [address] [place] [address] 11/11/2020 12:00:00 AM EDT eCW1 ([facility]) ( ESTOB) [facility] [address] [place] [address] 10/04/2020 12:00:00 AM EDT eCW1 ([facility]) ( ESTOB) [facility] [address] [place] [address] 09/06/2020 12:00:00 AM EDT eCW1 ([facility]) ( ESTOB) [facility] [address] [place] [address] 08/05/2020 12:00:00 AM EDT eCW1 ([facility]) ( NEWOB) enter New OB Visit [address] [place] [address] 07/08/2020 12:00:00 AM EDT eCW1 ([facility]) [place] [address] [facility] [address] 05/21/2020 12:00:00 AM EDT eCW1 ([facility]) [place] [address] [facility] [address] 05/03/2020 12:00:00 AM EST eCW1 ([facility]) [place] [address] [facility] [address] 04/09/2020 12:00:00 AM EST eCW1 ([facility]) [place] [address] [facility] [address] 03/12/2020 12:00:00 AM EST eCW1 ([facility]) [place] [address] [facility] [address] 01/21/2020 12:00:00 AM EST eCW1 ([facility]) [place] [address] [facility] [address] 01/08/2020 12:00:00 AM EST eCW1 ([facility]) [place] [address] [facility] [address] 01/08/2020 12:00:00 AM EST eCW1 ([facility]) [place] [address] [facility] [address] 12/22/2019 12:00:00 AM EDT eCW1 ([facility]) [place] [address] [facility] [address] 11/14/2019 12:00:00 AM EDT eCW1 ([facility]) Immunizations Vaccine Date Status Description Data Source(s) Tdap 11/26/2020 02:27:00 PM EDT completed e [facility] Tdap 11/26/2020 02:27:00 PM EDT completed e CW1 ([facility]) Tdap 11/26/2020 02:27:00 PM EDT completed e CW1 ([facility]) Tdap 11/26/2020 02:27:00 PM EDT completed e CW1 ([facility]) Tdap 11/26/2020 02:27:00 PM EDT completed e CW1 ([facility]) Tdap 11/26/2020 02:27:00 PM EDT completed e CW1 ([facility]) Tdap 11/26/2020 02:27:00 PM EDT completed e CW1 ([facility]) Medications Medication Brand Name Start Date Product Form Dose Route Admi nistrative Instructions Pharmacy Instructions Status Indications Reaction Description Data Source(s) Cholecalciferol 1.25 MG (51229 UT) UNK 05/03/2020 12:00:00 AM EST 1.0 {capsule} active Cholecalciferol 1.25 M G (71755 UT) [facility]) Cholecalciferol 125 MCG (5000 UT) UNK 03/15/2020 12:00:00 AM EST active Cholecalciferol 125 MCG (5000 UT ) [facility] ([facility]) Cholecalciferol 125 MCG (5000 UT) UNK 03/15/2020 12:00:00 AM EST active Cholecalciferol 125 MCG (5000 UT ) [facility]) Insurance Providers Payer name Policy type / Coverage type Policy ID Covered republican ID Covered republican's relationship to schuler Policy Schuler Plan Information [place] HUMANA [id number] HUMANA [facility] REG O [id number] S [id number] [facility] ACTIVE DUTY [id number] [facility] Commercial [id number] Family Dependent [id number] Problems, Conditions, and Diagnoses Code Display Name Description Problem Type Effective Dates Data Source(s) Z34.80 care Supervision of other normal P roblem 07/08/2020 12:00:00 AM EDT eCW1 [facility]) E55.9 [id number] Vitamin D deficiency Problem 03/12/2020 12:0 0:00 AM EST eCW1 ([facility]) N92.0 [id number] Menorrhagia with regular cycle Problem 12/22/2019 12:00:00 AM EDT eCW1 ([facility]) Surgeries/Procedures Procedure Description Date Indications Data Source(s) INFLUENZA VIRUS VACC SPLIT PRSRV FREE 3 YRS/> IM 12/16 12:00:00 AM EDT eCW1 ([facility]) Results ID Date Data Source HBSAG 07/08/2020 12:00:00 AM EDT eCW1 ([facility]) Name Value Range Interpretation Code Description Data Kiah rce(s) Supporting Document(s) NEGATIVE NEGATIVE HBsAg eCW1 ([facility]) ID Date Data Source URINE CULTURE 07/08/2020 12:00:00 AM EDT eCW1 ([facility]) Name Value Range Interpretation Code Description Data Kiah rce(s) Supporting Document(s) URINE CULTURE eCW1 ([facility]) ID Date Data Source Pre Eclampsia Profile 07/08/2020 12:00:00 AM EDT eCW1 ([facility]) Name Value Range Interpretation Code Description Data Kiah rce(s) Supporting Document(s) 0.52 0.55-1.30 CREATININE FOR GFR eCW1 ([facility]) > 60.0 >60 GLOMERULAR FILTRATION RATE eCW 1 ([facility]) 16 7-37 AST/SGOT eCW1 ([facility]) 26 12-78 ALT/SGPT eCW1 ([facility]) 137 84-246 LDH LACTATE DEHYDROGENASE eCW1 ([facility]) 0.4 0.2-1.0 BILIRUBIN,TOTAL eCW1 ([facility]) 2.8 2.6-6.0 URIC ACID eCW1 ([facility]) ID Date Data Source HEPATITIS C ANTIBODY INDEX 07/08/2020 12:00:00 AM EDT eCW1 ( [facility]) Name Value Range Interpretation Code Description Data Kiah rce(s) Supporting Document(s) 0.0 <0.8 HEPATITIS C VIRUS DAVID INDEX eC W1 ([facility]) ID Date Data Source RUBELLA IMMUNE STATUS IgG 07/08/2020 12:00:00 AM EDT eCW1 ([facility]) Name Value Range Interpretation Code Description Data Kiah rce(s) Supporting Document(s) IMMUNE IMMUNE RUBELLA IgG QUALITATIVE eCW1 ( [facility]) ID Date Data Source SYPHILIS ANTIBODY (RPR SCREEN) 07/08/2020 12:00:00 AM EDT eC W1 ([facility]) Name Value Range Interpretation Code Description Data Kiah rce(s) Supporting Document(s) NONREACTIVE NONREACTIVE SYPHILIS eCW1 ([facility]) ID Date Data Source [id number] 07/08/2020 12:00:00 AM EDT eCW1 ([facility]) Name Value Range Interpretation Code Description Data Kiah rce(s) Supporting Document(s) HIV 1&2 ANTIBODY SCREEN eCW1 ( [facility]) ID Date Data Source CHLAMYDIA & GC DNA AMPLIFICAT 07/08/2020 12:00:00 AM EDT eCW 1 ([facility]) Name Value Range Interpretation Code Description Data Kiah rce(s) Supporting Document(s) Chlamydia trachomatis rRNA [Presence] in Unspecified specimen by Probe and target amplification method NEGATIVE NEGATIVE CHLAMYDIA DNA AMPLIFICATION eCW1 ([facility]) ID Date Data Source TOTAL PROTEIN,RANDOM URINE 07/08/2020 12:00:00 AM EDT eCW1 ( [facility]) Name Value Range Interpretation Code Description Data Kiah rce(s) Supporting Document(s) 17.7 0.0-12.0 TOTAL PROTEIN,RANDOM URIN E eCW1 ([facility]) ID Date Data Source CREATININE,RANDOM URINE 07/08/2020 12:00:00 AM EDT eCW1 ([facility]) Name Value Range Interpretation Code Description Data Kiah rce(s) Supporting Document(s) 85.9 CREATININE,RANDOM URINE eCW1 ( [facility]) ID Date Data Source CBC - Complete Blood Count 07/08/2020 12:00:00 AM EDT eCW1 ( [facility]) Name Value Range Interpretation Code Description Data Kiah rce(s) Supporting Document(s) 11.6 4.0-10.0 WHITE BLOOD COUNT eCW1 ([facility]) 3.97 4.00-5.40 RED BLOOD COUNT eCW1 ([facility]) 12.2 12.0-15.5 HEMOGLOBIN eCW1 ([facility]) 37.1 36.0-47.0 HEMATOCRIT eCW1 ([facility]) 93.5 80.0-96.0 MEAN CORPUSCULAR VOLUME e CW1 ([facility]) 30.7 27.0-33.0 MEAN CORPUSCULAR HEMOGLOB IN eCW1 ([facility]) 32.9 32.0-36.5 MEAN CORPUSCULAR HGB CONC eCW1 ([facility]) 12.2 11.5-14.5 RED CELL DISTRIBUTION WID TH eCW1 ([facility]) 146 150-450 PLATELET COUNT, AUTOMATED eCW1 ([facility]) ID Date Data Source Type and Screen Prenatal1 07/08/2020 12:00:00 AM EDT eCW1 ([facility]) Name Value Range Interpretation Code Description Data Kiah rce(s) Supporting Document(s) NEGATIVE AB SCREEN PNP1 GEL (VIS) eCW1 ([facility]) ID Date Data Source HCG, SERUM QUANTITATIVE 05/22/2020 12:00:00 AM EDT eCW1 ([facility]) Name Value Range Interpretation Code Description Data Kiah rce(s) Supporting Document(s) [id number] HCG, SERUM QUANTITATIVE eCW1 ( [facility]) ID Date Data Source FREE T4 & TSH PANEL 05/22/2020 12:00:00 AM EDT eCW1 ([facility]) Name Value Range Interpretation Code Description Data Kiah rce(s) Supporting Document(s) 0.579 0.358-3.740 THYROID STIMULATING HORM ONE eCW1 ([facility]) 1.06 0.76-1.46 FREE T4 eCW1 ([facility]) ID Date Data Source Comprehensive Metabolic Profile (CMP) 05/22/2020 12:00:00 AM EDT eCW1 ([facility]) Name Value Range Interpretation Code Description Data Kiah rce(s) Supporting Document(s) 0.46 0.55-1.30 CREATININE FOR GFR eCW1 ([facility]) 77 70-100 GLUCOSE, FASTING eCW1 ([facility]) 8 7-18 BLOOD UREA NITROGEN eCW1 ([facility]) 139 136-145 SODIUM LEVEL eCW1 ([facility]) > 60.0 >60 GLOMERULAR FILTRATION RATE eCW 1 ([facility]) 109 98-107 CHLORIDE LEVEL eCW1 ([facility]) 4.7 3.5-5.1 POTASSIUM SERUM eCW1 ([facility]) 24 21-32 CARBON DIOXIDE LEVEL eCW1 ([facility]) 9.4 8.5-10.1 CALCIUM LEVEL eCW1 ([facility]) 13 7-37 AST/SGOT eCW1 ([facility]) 89 45-117 ALKALINE PHOSPHATASE eCW1 ([facility]) 0.5 0.2-1.0 BILIRUBIN,TOTAL eCW1 ([facility]) 36 12-78 ALT/SGPT eCW1 ([facility]) 7.1 6.4-8.2 TOTAL PROTEIN eCW1 ([facility]) 4.0 3.2-5.2 ALBUMIN eCW1 ([facility]) 1.3 1.2-2.2 ALBUMIN/GLOBULIN RATIO eCW1 ([facility]) ID Date Data Source CBC with Differential 05/22/2020 12:00:00 AM EDT eCW1 ([facility]) Name Value Range Interpretation Code Description Data Kiah rce(s) Supporting Document(s) 3.73 4.00-5.40 RED BLOOD COUNT eCW1 ([facility]) 9.8 4.0-10.0 WHITE BLOOD COUNT eCW1 ([facility]) 98.7 80.0-96.0 MEAN CORPUSCULAR VOLUME e CW1 ([facility]) 12.6 12.0-15.5 HEMOGLOBIN eCW1 ([facility]) 36.8 36.0-47.0 HEMATOCRIT eCW1 ([facility]) 12.1 11.5-14.5 RED CELL DISTRIBUTION WID TH eCW1 ([facility]) 33.8 27.0-33.0 MEAN CORPUSCULAR HEMOGLOB IN eCW1 ([facility]) 34.2 32.0-36.5 MEAN CORPUSCULAR HGB CONC eCW1 ([facility]) 67.9 36.0-66.0 NEUTROPHILS % eCW1 ([facility]) 8.0 2.0-8.0 MONO % eCW1 ([facility]) 173 150-450 PLATELET COUNT, AUTOMATED eCW1 ([facility]) 22.7 24.0-44.0 LYMPH % eCW1 ([facility]) 0.5 0.0-1.0 BASO % eCW1 ([facility]) 6.7 1.5-8.5 NEUTROPHILS # eCW1 ([facility]) 0.6 0.0-3.0 EOS % eCW1 ([facility]) 2.2 1.5-5.0 LYMPH # eCW1 ([facility]) 0.1 0.0-0.5 EOS # eCW1 ([facility]) 0.1 0.0-0.2 BASO # eCW1 ([facility]) 0.8 0.0-0.8 MONO # eCW1 ([facility]) ID Date Data Source VITAMIN D 25-HYDROXY 03/15/2020 12:00:00 AM EST eCW1 ([facility] Name Value Range Interpretation Code Description Data Kiah rce(s) Supporting Document(s) 18.0 30.0-100.0 eCW1 ([facility]) Procedure Social History Code Duration Value Status Description Data Source(s ) Smoking 01/07/2021 12:00:00 AM EST Never Smoker completed Never S moker eCW1 ([facility]) Smoking 01/07/2021 12:00:00 AM EST Never Smoker completed Never S moker eCW1 ([facility]) Smoking 12/31/2020 12:00:00 AM EST Never Smoker completed Never S moker eCW1 ([facility]) Smoking 12/24/2020 12:00:00 AM EDT Never Smoker completed Never S moker eCW1 ([facility]) Smoking 12/24/2020 12:00:00 AM EDT Never Smoker completed Never S moker eCW1 ([facility]) Smoking 12/16/2020 12:00:00 AM EDT Never Smoker completed Never S moker eCW1 ([facility]) Smoking 11/26/2020 12:00:00 AM EDT Never Smoker completed Never S moker eCW1 ([facility]) Smoking 11/05/2020 12:00:00 AM EDT Never Smoker completed Never S moker eCW1 ([facility]) Smoking 10/02/2020 12:00:00 AM EDT Never Smoker completed Never S moker eCW1 ([facility]) Smoking 09/05/2020 12:00:00 AM EDT Never Smoker completed Never S moker eCW1 ([facility]) Smoking 08/01/2020 12:00:00 AM EDT Never Smoker completed Never S moker eCW1 ([facility]) Smoking 07/08/2020 12:00:00 AM EDT Never Smoker completed Never S moker eCW1 ([facility]) Smoking 05/21/2020 12:00:00 AM EDT Never Smoker completed Never S moker eCW1 ([facility]) Smoking 04/09/2020 12:00:00 AM EST Never Smoker completed Never S moker eCW1 ([facility]) Smoking 04/09/2020 12:00:00 AM EST Never Smoker completed Never S moker eCW1 ([facility]) Smoking 03/12/2020 12:00:00 AM EST Never Smoker completed Never S moker eCW1 ([facility]) Smoking 03/12/2020 12:00:00 AM EST Never Smoker completed Never S moker eCW1 ([facility]) Smoking 12/22/2019 12:00:00 AM EDT Never Smoker completed Never S moker eCW1 ([facility]) Smoking 12/22/2019 12:00:00 AM EDT Never Smoker completed Never S moker eCW1 ([facility]) Smoking 12/22/2019 12:00:00 AM EDT Never Smoker completed Never S moker eCW1 ([facility]) Vital Signs ID Date Data Source UNK Name Value Range Interpretation Code Description Data Source(s) Body weight 154 [lb_av] 154 [lb_av] eCW1 ([facility]) Body weight 69.85 kg 69.85 kg eCW1 ([facility]) Body height 62 [in_i] 62 [in_i] W1 ([facility]) Body mass index (BMI) [Ratio] 28.167 kg/m2 28.1 67 kg/m2 eCW1 ([facility]) Systolic blood pressure 128 mm[Hg] 128 mm[Hg] e CW1 ([facility]) Diastolic blood pressure 72 mm[Hg] 72 mm[Hg] eCW1 ([facility]) Body weight 154 [lb_av] 154 [lb_av] eCW1 ([facility]) Body weight 69.85 kg 69.85 kg eCW1 ([facility]) Body height 62 [in_i] 62 [in_i] eCW1 ([facility]) Body mass index (BMI) [Ratio] 28.167 kg/m2 28.1 67 kg/m2 eCW1 ([facility]) Systolic blood pressure 122 mm[Hg] 122 mm[Hg] e CW1 ([facility]) Diastolic blood pressure 70 mm[Hg] 70 mm[Hg] eCW1 ([facility]) Body height 62 [in_i] 62 [in_i] eCW1 ([facility]) Body weight 152.6 [lb_av] 152.6 [lb_av] eCW1 ([facility]) Body mass index (BMI) [Ratio] 27.911 kg/m2 27.9 11 kg/m2 eCW1 ([facility]) Systolic blood pressure 132 mm[Hg] 132 mm[Hg] e CW1 ([facility]) Diastolic blood pressure 80 mm[Hg] 80 mm[Hg] eCW1 ([facility]) Body weight 69.22 kg 69.22 kg eCW1 ([facility]) Body weight 149.6 [lb_av] 149.6 [lb_av] eCW1 ([facility]) Body weight 67.86 kg 67.86 kg eCW1 ([facility]) Body height 62 [in_i] 62 [in_i] eCW1 ([facility]) Body mass index (BMI) [Ratio] 27.362 kg/m2 27.3 62 kg/m2 eCW1 ([facility]) Systolic blood pressure 132 mm[Hg] 132 mm[Hg] e CW1 ([facility]) Diastolic blood pressure 80 mm[Hg] 80 mm[Hg] eCW1 ([facility]) Diastolic blood pressure 64 mm[Hg] 64 mm[Hg] eCW1 ([facility]) Systolic blood pressure 108 mm[Hg] 108 mm[Hg] e CW1 ([facility]) Body weight 143 [lb_av] 143 [lb_av] eCW1 ([facility]) Body weight 64.86 kg 64.86 kg eCW1 ([facility]) Body height 62 [in_i] 62 [in_i] eCW1 ([facility]) Body mass index (BMI) [Ratio] 26.155 kg/m2 26.1 55 kg/m2 eCW1 ([facility]) Body weight 133.8 [lb_av] 133.8 [lb_av] eCW1 ([facility]) Body mass index (BMI) [Ratio] 24.47 kg/m2 24.47 kg/m2 eCW1 ([facility]) Systolic blood pressure 122 mm[Hg] 122 mm[Hg] e CW1 ([facility]) Diastolic blood pressure 72 mm[Hg] 72 mm[Hg] eCW1 ([facility]) Body height 62 [in_i] 62 [in_i] eCW1 ([facility]) Body weight 128.2 [lb_av] 128.2 [lb_av] eCW1 ([facility]) Body height 62 [in_i] 62 [in_i] eCW1 ([facility]) Body mass index (BMI) [Ratio] 23.448 kg/m2 23.4 48 kg/m2 eCW1 ([facility]) Systolic blood pressure 120 mm[Hg] 120 mm[Hg] e CW1 ([facility]) Diastolic blood pressure 70 mm[Hg] 70 mm[Hg] eCW1 ([facility]) Systolic blood pressure 122 mm[Hg] 122 mm[Hg] e CW1 ([facility]) Diastolic blood pressure 74 mm[Hg] 74 mm[Hg] eCW1 ([facility]) Body weight 120.6 [lb_av] 120.6 [lb_av] eCW1 ([facility]) Body weight 54.7 kg 54.7 kg eCW1 ([facility]) Body height 62 [in_i] 62 [in_i] eCW1 ([facility]) Body mass index (BMI) [Ratio] 22.058 kg/m2 22.0 58 kg/m2 eCW1 ([facility]) Body weight 117.0 [lb_av] 117.0 [lb_av] eCW1 ([facility]) Body weight 53.07 kg 53.07 kg eCW1 ([facility]) Body height 62 [in_i] 62 [in_i] eCW1 ([facility]) Body mass index (BMI) [Ratio] 21.4 kg/m2 21.4 k g/m2 eCW1 ([facility]) Systolic blood pressure 120 mm[Hg] 120 mm[Hg] e CW1 ([facility]) Diastolic blood pressure 64 mm[Hg] 64 mm[Hg] eCW1 ([facility]) Body weight 111.4 [lb_av] 111.4 [lb_av] eCW1 ([facility]) Body height 62 [in_i] 62 [in_i] eCW1 ([facility]) Body mass index (BMI) [Ratio] 20.37 kg/m2 20.37 kg/m2 W1 ([facility]) Heart rate 104 /min 104 /min eCW1 ([facility]) Respiratory rate 18 /min 18 /min eCW1 ([facility]) Body temperature 98 [degF] 98 [degF] eCW1 ([facility]) Systolic blood pressure 110 mm[Hg] 110 mm[Hg] e CW1 ([facility]) Diastolic blood pressure 72 mm[Hg] 72 mm[Hg] eCW1 ([facility]) Body weight 116 [lb_av] 116 [lb_av] eCW1 ([facility]) Body height 62 [in_i] 62 [in_i] eCW1 ([facility]) Body mass index (BMI) [Ratio] 21.21 kg/m2 21.21 kg/m2 eCW1 ([facility]) Heart rate 116 /min 116 /min eCW1 ([facility]) Respiratory rate 18 /min 18 /min eCW1 ([facility]) Body temperature 98.2 [degF] 98.2 [degF] eCW1 ( [facility]) Systolic blood pressure 100 mm[Hg] 100 mm[Hg] e CW1 ([facility]) Diastolic blood pressure 68 mm[Hg] 68 mm[Hg] eCW1 ([facility]) Body weight 111.4 [lb_av] 111.4 [lb_av] eCW1 ([facility]) Body height 62 [in_i] 62 [in_i] eCW1 ([facility]) Body mass index (BMI) [Ratio] 20.37 kg/m2 20.37 kg/m2 eCW1 ([facility]) Heart rate 107 /min 107 /min eCW1 ([facility]) Respiratory rate 18 /min 18 /min eCW1 ([facility]) Body temperature 98.4 [degF] 98.4 [degF] eCW1 ( [facility]) Systolic blood pressure 102 mm[Hg] 102 mm[Hg] e CW1 ([facility]) Diastolic blood pressure 64 mm[Hg] 64 mm[Hg] eCW1 ([facility]) Body weight 115 [lb_av] 115 [lb_av] eCW1 ([facility]) Body height 62 [in_i] 62 [in_i] eCW1 ([facility]) Body mass index (BMI) [Ratio] 21.03 kg/m2 21.03 kg/m2 eCW1 ([facility]) Heart rate 88 /min 88 /min eCW1 ([facility]) Respiratory rate 16 /min 16 /min eCW1 ([facility]) Body temperature 98 [degF] 98 [degF] eCW1 ([facility]) Systolic blood pressure 112 mm[Hg] 112 mm[Hg] e CW1 ([facility]) Diastolic blood pressure 70 mm[Hg] 70 mm[Hg] eCW1 ([facility]) Patient Treatment Plan of Care Planned Activity Planned Date Details Description Data Source (s) Cholecalciferol 1.25 MG (18804 UT) 05/03/2020 12:00:00 AM EST eCW1 ([facility]) Cholecalciferol 125 MCG (5000 UT) 03/15/2020 12:00:00 AM EST eCW1 ([facility]) Cholecalciferol 125 MCG (5000 UT) 03/15/2020 12:00:00 AM EST eCW1 ([facility])
--- OUTSIDE RECORDS SUMMARY | 2021-01-12 16:22 | CCD ---
Author Author [facility] Organization [facility] Address Unknown Phone Unavailable Care Team Providers Care Admissions Consultant Name Role Phone Jose EduardoJames Unavailable PROBLEMS Type Condition ICD9-CM Code [id number] Code Onset Dates Condition S tatus W/U Status Risk SNOMED Code Notes Problem Vitamin D deficiency E55.9 Active confirmed 04149443 Problem Supervision of other normal Z34.80 Ac tive confirm [id number] Problem Menorrhagia with regular cycle N92.0 Active confir med [id number] ALLERGIES No Known Allergies ENCOUNTERS from 1993 to 2020-12-17 Encounter Location Date Provider Diagnosis [facility] [address] [place] [address] [place] [address] Nov, James Whitt Encounter for superv ision of normal in third trimester Z34.93 and Thrombocytopenia, idiopathic D69.3 IMMUNIZATIONS Vaccine Route Administration Date Status TDAP 0.5mL Boostrix IM Intramuscular Nov 26, 2020 Administere d SOCIAL HISTORY Tobacco Use: Social History Observation Description Date Details (start date - stop date) Never Smoker Sex Assigned At : Social History Observation Description Sex Assigned At Unknown Education: Question Answer Notes Level of Education: Finished High School Language: Question Answer Notes Languages spoken: Ivorian Oriental Orthodox: Question Answer Notes Oriental Orthodox 21 Cheondoism Tobacco Use: Question Answer Notes Are you a: never smoker REASON FOR REFERRAL No Information VITAL SIGNS Weight 149.6 lbs Nov, Weight-kg 67.86 kg Nov, Height 62 in Nov, BMI 27.362 kg/m2 Nov, Blood pressure systolic 132 mm Hg Nov, Blood pressure diastolic 80 mm Hg Nov, MEDICATIONS Medication SIG (Take, Route, Frequency, Duration) Notes Start Da te End Date Status 27-1 MG 1 tablet Orally Once a day Active Omeprazole 20 MG TAKE 1 CAPSULE BY MOUTH ONCE DAILY Oral for 20 Not-Taking Vitamin D3 1.25 MG (38920 UT) TAKE 1 CAPSULE BY MOUTH ONCE A WEE K Oral for 28 Not-Taking Famotidine 20 MG TAKE 1 TABLET BY MOUTH TWICE DAILY Oral for 5 Not-Taking PrePLUS 27-1 MG TAKE 1 TABLET BY MOUTH ONCE DAILY Oral for 30 Not-Taking PROCEDURES from 1993 to 2020-12-17 Procedure Date Ordered Result Body Site Imm: Fluzone 6mo & older 0.5mL IM Influenza 2020-12-16 N/A RESULTS No Results REASON FOR VISIT 1 WK PN MEDICAL (GENERAL) HISTORY Type Description Date Medical History GERD Medical History Gestational HTN Surgical History D&C Hospitalization History childbirth Goals Section No Information Health Concerns No Information MEDICAL EQUIPMENT No Information MENTAL STATUS No Information FUNCTIONAL STATUS No Information ASSESSMENTS Encounter Date Diagnosis Assessment Notes Treatment Notes Treatm ent Clinical Notes Nov, Encounter for supervision of normal in third trimester (ICD-10 - Z34.93) Nov, Thrombocytopenia, idiopathic (ICD-10 - D69.3) PLAN OF TREATMENT Next Appt Details 1 Week Reason: Provider Name:James Ashkan Whitt, 2020-12-24 0 2:40:00 PM, [address] [facility], , [place], [address], Insurance Providers Payer Name Payer Address Payer Phone Insured Name Patient Relati onship to Insured Coverage Start Date Coverage End Date [facility] [employer] [id number] [place] [address] Bacilio Richey
--- OUTSIDE RECORDS SUMMARY | 2021-01-12 16:22 | CCD ---
Author Author [facility] Organization [facility] Address Unknown Phone Unavailable Care Team Providers Care Operations Program Manager Name Role Phone WillieDonnell sanchezAnayeli Unavailable PROBLEMS Type Condition ICD9-CM Code [id number] Code Onset Dates Condition S tatus W/U Status Risk SNOMED Code Notes Problem Vitamin D deficiency E55.9 Active confirmed 44769520 Problem Supervision of other normal Z34.80 Ac tive confirm 801187305 Problem Menorrhagia with regular cycle N92.0 Active confir med [id number] ALLERGIES No Known Allergies ENCOUNTERS from 1993 to 2021-01-03 Encounter Location Date Provider Diagnosis [facility] [address] [place] [address] [place] [address] Dec, Anayeli Tsang Encounter for sup ervision of normal in multigravida in third trimester Z34.83 and 39 weeks gestation of Z3A.39 IMMUNIZATIONS Vaccine Route Administration Date Status TDAP 0.5mL Boostrix IM Intramuscular Nov 26, 2020 Administere d SOCIAL HISTORY Tobacco Use: Social History Observation Description Date Details (start date - stop date) Never Smoker Sex Assigned At : Social History Observation Description Sex Assigned At Unknown Education: Question Answer Notes Level of Education: Finished High School Language: Question Answer Notes Languages spoken: Singaporean Catholic: Question Answer Notes Catholic 21 Jain Tobacco Use: Question Answer Notes Are you a: never smoker REASON FOR REFERRAL No Information VITAL SIGNS Weight 154 lbs Dec, Weight-kg 69.85 kg 09 Nov, 2021 Height 62 in Dec, BMI 28.167 kg/m2 Dec, Blood pressure systolic 122 mm Hg Dec, Blood pressure diastolic 70 mm Hg Dec, MEDICATIONS Medication SIG (Take, Route, Frequency, Duration) Notes Start Da te End Date Status Vitamin D3 1.25 MG (06261 UT) TAKE 1 CAPSULE BY MOUTH ONCE [...] 1 tablet Orally Once a day Active PROCEDURES No Information RESULTS No Results REASON FOR VISIT 1 wk pn per wilfrido MEDICAL (GENERAL) HISTORY Type Description Date Medical History GERD Medical History Gestational HTN Surgical History D&C Hospitalization History childbirth Goals Section No Information Health Concerns No Information MEDICAL EQUIPMENT No Information MENTAL STATUS No Information FUNCTIONAL STATUS No Information ASSESSMENTS Encounter Date Diagnosis Assessment Notes Treatment Notes Treatm ent Clinical Notes Dec, Encounter for supervision of normal in multigravida in third trimester (ICD-10 - Z34.83) Dec, 39 weeks gestation of (ICD-10 - Z3A.39 ) PLAN OF TREATMENT Next Appt Details 1 Week Reason:- Routine follow up [facility]-01-09 11:00:00 AM, [address] [facility], , [place], [address], Follow Up:1 Week- Routine follow up Insurance Providers Payer Name Payer Address Payer Phone Insured Name Patient Relati onship to Insured Coverage Start Date Coverage End Date [facility] [employer] [address] [place] [address] Bacilio Richey
--- OUTSIDE RECORDS SUMMARY | 2021-01-12 16:22 | CCD ---
Author Author [facility] Organization [facility] Address Unknown Phone Unavailable Care Team Providers Care Item Processor Name Role Phone James Whitt Unavailable PROBLEMS Type Condition ICD9-CM Code [id number] Code Onset Dates Condition S tatus W/U Status Risk SNOMED Code Notes Problem Vitamin D deficiency E55.9 Active confirmed 31669215 Problem Supervision of other normal Z34.80 Ac tive confirm 467054178 Problem Menorrhagia with regular cycle N92.0 Active confir med [id number] ALLERGIES No Known Allergies ENCOUNTERS from 1993 to 2020-12-25 Encounter Location Date Provider Diagnosis [facility] [address] [place] [address] [place] [address] Dec, James Whitt IMMUNIZATIONS Vaccine Route Administration Date Status TDAP 0.5mL Boostrix IM Intramuscular Nov 26, 2020 Administere d SOCIAL HISTORY Tobacco Use: Social History Observation Description Date Details (start date - stop date) Never Smoker Sex Assigned At : Social History Observation Description Sex Assigned At Unknown Education: Question Answer Notes Level of Education: Finished High School Language: Question Answer Notes Languages spoken: Mozambican Samaritan: Question Answer Notes Samaritan 21 Jain Tobacco Use: Question Answer Notes Are you a: never smoker REASON FOR REFERRAL No Information VITAL SIGNS No information MEDICATIONS Medication SIG (Take, Route, Frequency, Duration) Notes Start Da te End Date Status Vitamin D3 1.25 MG (85422 UT) TAKE 1 CAPSULE BY MOUTH ONCE [...] Information RESULTS No Results REASON FOR VISIT appt MEDICAL (GENERAL) HISTORY Type Description Date Medical History GERD Medical History Gestational HTN Surgical History D&C Hospitalization History childbirth Goals Section No Information Health Concerns No Information MEDICAL EQUIPMENT No Information MENTAL STATUS No Information FUNCTIONAL STATUS No Information ASSESSMENTS No Information PLAN OF TREATMENT Next Appt Details Provider [facility], 2020-12-31 08:00:00 AM, [address] [facility], , [place], [address], Insurance Providers Payer Name Payer Address Payer Phone Insured Name Patient Relati onship to Insured Coverage Start Date Coverage End Date [facility] [employer] [address] [place] [id number] Bacilio Richey
[2021-01-12] MEDS ORDERED: HOME MED LIST COMPLETE! XX SCH (16:40)
[2021-01-12 16:42] VITALS: BP 120/76
[2021-01-12 16:58] VITALS: BP 109/57
[2021-01-12] MEDS ORDERED: LACTATED RINGER'S 1000 ML IV STA (17:02)
[2021-01-12] MEDS ORDERED: CARBOPROST TROMETHAMINE 250 MCG/ML AMP IM PRN (17:05)
[2021-01-12] MEDS ORDERED: LR 1,000 ML IV SCH (17:05)
[2021-01-12] MEDS ORDERED: TRANEXAMIC ACID INJection 1,000 MG in NS 100 ML IV PRN (17:05)
[2021-01-12] MEDS ORDERED: METHYLERGONOVINE MALEATE 0.2 MG/ML VIAL (J2210) IM PRN (17:05)
[2021-01-12] MEDS ORDERED: miSOPROStol 50MCG 1/2 TABLET PO ONE (17:05)
--- NOTE | 2021-01-12 17:21 | HPEPDOC ---
Obstetrical History & Physical General Date of Admission Jan 12, 2021 at 16:19 History of Present Illness Patient is a 25-year-old -0-2-1 at 40 weeks and 6 days estimated gestationa l age who presents for induction of labor Chief Complaint: Induction of labor Age: 25 : 4 Term: 1 Pre-term: 0 Abortions: 2 Livin Care Care: Good Care Dating Final EDC: Jan 06, 2021 EGA at Admission: 40.6 Antepartum Course Diagnos(e)s 1. Gestational thrombocytopenia 2. 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 History of preeclampsia in G1 2. GERD Surgical History: Dilatation and Curettage Family History Significant Family History: No pertinent family hx Social History Marital Status: Family situation: Spouse/partner home * Smoker: non-smoker Alcohol: Denies Drugs: denies Abuse Violence Screening Have you been hit/kicked/slapp: No Have you been sexually assault: No Imunizations Tdap status: current Influenza Status: declined Allergies Coded Allergies: No Known Allergies (Unverified , 09/18/18) Medications Scheduled No.137/Iron/Folic Acd ( Vitamin Tablet) 1 Each Tablet, 1 TAB PO DAILY Physical Examination Physical Examination GENERAL: Alert and oriented times three. BREAST: . ABDOMEN: Gravid and non-tender to touch. FETUS: Is vertex (VTX) by BSUS HEART RATE: Regular rate and rhythm. LUNGS: Clear to auscultation (CTA). EXTREMITIES: No edema. Laboratory Data [facility] Laboratory Tests 2 01/12/21 16:28: Serology Scanned Report Hepatitis B Testing Pertinent Laboratoy Data Blood Type: O+ RBC Antibody Screen: Negative HIV: Negative Hepatitis B: Negative Hepatitis C: Negative Rubella: Immune Chlamydia/Gonorrhea: Negative Group B Streptococcus: Negative Quad Screen Test: Unknown Cystic Fibrosis: Unknown Glucose Tolerance Test: 104 Vaginal Examination Dilation: 2cm Effacement: 50% Station: -2 Cervical Position: Posterior Assessment Heart Rate (FHR): 130 Variability: Moderate Accelerations: Positive Decelerations: None Tocometer Contractions: No Assessment/Plan Assessment 25-year-old -0-2-1 at 40 weeks and 6 days estimated gestational age who presents for scheduled induction of labor Plan 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 Diet: Regular diet, switch to clear liquids with start of induction Group B Streptococcus (GBS) negative. Labs and intravenous (IV) per unit protocol. Counseled on misoprostol for cervical ripening as well as Pitocin and induction of labor (IOL). Lactated Ringers (LR): Bolus 1000 mL, then at 125 mL/hr. Anticipate normal spontaneous delivery. C-S as appropriate. NAZ HOPE MD Jan 12, 2021 17:21
[2021-01-12 17:52] LABS: HEMATOCRIT 34.9 % (36.0-47.0); HEMOGLOBIN 11.2 g/dl (12.0-15.5); MEAN CORPUSCULAR HEMOGLOBIN 28.4 pg (27.0-33.0); MEAN CORPUSCULAR HGB CONC 32.1 g/dl (32.0-36.5); MEAN CORPUSCULAR VOLUME 88.6 fl (80.0-96.0); PLATELET COUNT, AUTOMATED 112 10^3/uL (150-450); RED BLOOD COUNT 3.94 10^6/uL (4.00-5.40); WHITE BLOOD COUNT 12.2 10^3/uL (4.0-10.0)
[2021-01-12 18:13] VITALS: BP 114/59
[2021-01-12] MEDS ORDERED: OXYTOCIN 30 UNITS IN 0.9% NaCl 500ML IV BAG (J2590) As Ordered ONE (23:27)
[2021-01-12] MEDS ORDERED: OXYTOCIN DRIP 30 UNITS in IV 1 EA IV SCH (23:30)
[2021-01-13] VITALS (7 sets, daily range): BP systolic 123–234; BP diastolic 71–95
[2021-01-13 02:56] LABS: HEMATOCRIT 34.1 % (36.0-47.0); HEMOGLOBIN 11.1 g/dl (12.0-15.5); MEAN CORPUSCULAR HGB CONC 32.6 g/dl (32.0-36.5); PLATELET COUNT, AUTOMATED 100 10^3/uL (150-450); RED BLOOD COUNT 3.83 10^6/uL (4.00-5.40); WHITE BLOOD COUNT 11.3 10^3/uL (4.0-10.0)
[2021-01-13] MEDS ORDERED: FENTANYL 2MCG/ML ROPIVACAINE 0.2% IN 0.9% NACL 100ML IVBAG As Ordered ONE (03:21)
[2021-01-13] MEDS ORDERED: ePHEDrine SULFATE 25 MG/5 ML(5MG/ML) SYRINGE IV PRN (04:35)
[2021-01-13] MEDS ORDERED: diphenhydrAMINE 50MG/ML VIAL (J1200) IV PRN (04:35)
[2021-01-13] MEDS ORDERED: REFRIGERATOR IV KEYS XX PRN (04:35)
[2021-01-13] MEDS ORDERED: EPIDURAL/PCA KEYS XX PRN (04:35)
[2021-01-13] MEDS ORDERED: EPIDURAL COMMENT XX SCH (04:35)
[2021-01-13] MEDS ORDERED: FENTANYL/ROPIVACAINE/NACL BAG 100 ML EPIDURAL SCH (04:35)
[2021-01-13] MEDS ORDERED: ONDANSETRON 4MG/2ML VIAL IV PRN (04:35)
[2021-01-13] MEDS ORDERED: LACTATED RINGER'S 1000 ML IV PRN (04:35)
[2021-01-13] MEDS ORDERED: NALOXONE INJ 0.4MG/1ML VIAL (J2310 PER 1MG) IV PRN (04:35)
[2021-01-13 06:06] LABS: ALBUMIN 2.8 GM/DL (3.2-5.2); ALT/SGPT 28 U/L (12-78); BILIRUBIN,TOTAL 0.4 MG/DL (0.2-1.0); BLOOD UREA NITROGEN 9 MG/DL (7-18); CALCIUM LEVEL 9.1 MG/DL (8.5-10.1); CARBON DIOXIDE LEVEL 20 MEQ/L (21-32); CHLORIDE LEVEL 109 MEQ/L (98-107); CREATININE FOR GFR 0.52 MG/DL (0.55-1.30); GLOMERULAR FILTRATION RATE > 60.0 (>60); GLUCOSE, FASTING 92 MG/DL (70-100); SODIUM LEVEL 138 MEQ/L (136-145); TOTAL PROTEIN 6.6 GM/DL (6.4-8.2)
--- NOTE | 2021-01-13 07:30 | DNPDOC ---
[facility] Delivery Note Delivery Note DATE OF DELIVERY: 01/13/2021 PREDELIVERY DIAGNOSIS: 41-0/7 weeks' gestation and induction of labor. POST DELIVERY DIAGNOSIS: Delivered. PROCEDURE: Continuous vaginal delivery. MEETING FACILITATOR: Dr. Naz Hope ANESTHESIA: Epidural. ESTIMATED BLOOD LOSS: 200 mL. FINDINGS: 8 pound 13 ounce male , Score 9/9. DELIVERY SUMMARY: Patient is a 25-year-old 4 now para 1021 who was admitted to labor and delivery for induction of labor. Patient received 1 dose of misoprostol for cervical ripening and then was switched to regular dose Pitocin. She made rapid change to 7 cm and received an epidural. She continued to progress well to to completely dilated. She pushed with excellent effort and over the course of 3 contractions delivered a vigorous male over an intact perineum. The infant was immediately placed on patient's chest. After 30 second delay the cord was clamped and cut. The placenta was delivered with expression and cord traction. Pitocin was started immediately after placental delivery. Patient was noted to have brisk bleeding and uterine atony and bimanual massage was performed. Patient was given Cytotec 1000 mcg per rectum and bimanual massage was continued. She was given a dose of Methergine IM x1 dose. Sponge count correct. NAZ HOPE MD Jan 13, 2021 07:30
[2021-01-13] MEDS ORDERED: ceFAZolin SOD 2 GM in IV 1 EA IV ONE (08:00)
[2021-01-13] MEDS ORDERED: RHOGAM 300 MCG (1500 IU) INJ (J2790) IM SCH (08:35)
[2021-01-13] MEDS ORDERED: ACETAMINOPHEN TAB 650MG DOSE (2X325MG) PO PRN (08:35)
[2021-01-13] MEDS ORDERED: ANUSOL HC CREAM 30GM TOP PRN (08:35)
[2021-01-13] MEDS ORDERED: DIBUCAINE 1% OINTMENT 30GM TOP PRN (08:35)
[2021-01-13] MEDS ORDERED: MEASLES,MUMPS,RUBELLA VACCINE INJ (MMR-II) (90707) SC SCH (08:35)
[2021-01-13] MEDS ORDERED: METHYLERGONOVINE MALEATE 0.2 MG TAB PO PRN (08:35)
[2021-01-13] MEDS ORDERED: IBUPROFEN 600MG TAB PO PRN (08:35)
[2021-01-13] MEDS ORDERED: DOCUSATE SODIUM 100MG CAPSULE PO PRN (08:35)
[2021-01-13] MEDS: IBUPROFEN 800 MG TAB PO PRN (08:46)
[2021-01-13] MEDS: PRENATAL VITAMINS CHEWABLE TABLET PO SCH (09:55)
[2021-01-13] MEDS: ACETAMINOPHEN 500 MG TAB PO PRN (09:56)
[2021-01-14 06:00] VITALS: BP 109/63
[2021-01-14] MEDS: IBUPROFEN 800 MG TAB PO PRN (06:53)
[2021-01-14] MEDS ORDERED: COLA100C5 PO (08:20)
[2021-01-14] MEDS ORDERED: IBUP-1022 PO (08:20)
[2021-01-14] MEDS ORDERED: ACET-683 PO (08:20)
[2021-01-14] MEDS: PRENATAL VITAMINS CHEWABLE TABLET PO SCH (09:53)
[2021-01-14] MEDS: ACETAMINOPHEN 500 MG TAB PO PRN (18:46)
== END 2021-01-14 18:50 | disposition home or self-care (01) | DRG 806 ==
LOC: M LDI 16:19 → M OBS 01-13 09:47
PROVIDERS: ADMIT Obstetrics & Gynecology; ATTEND Obstetrics & Gynecology
PROC: 3E0P7GC Introduction of Other Therapeutic Substance into Female Reproductive, Via Natural or Artificial Opening (ICD-10-PCS; 2021-01-12)
PROC: 10E0XZZ Delivery of Products of Conception, External Approach (ICD-10-PCS; principal; 2021-01-13)
DX: O48.0 Post-term pregnancy (principal); Z37.0 Single live birth; O99.12 Other diseases of the blood and blood-forming organs and certain disorders involving the immune mechanism complicating childbirth; Z3A.40 40 weeks gestation of pregnancy; D69.6 Thrombocytopenia, unspecified; O99.62 Diseases of the digestive system complicating childbirth; K21.9 Gastro-esophageal reflux disease without esophagitis; O62.2 Other uterine inertia